=== PATIENT | female | born 1995 | race Caucasian/White ===

== ENCOUNTER 2022-12-23 16:34 | Emergency (ER) | payer MEDICAID ==
[~2022-12-23] VITALS: Ht 167.6 cm; Wt 86.6 kg
[2022-12-23 16:39] VITALS: BP 130/83
[2022-12-23 16:54] LABS: URINE HCG POSITIVE (NEG)
[2022-12-23 17:02] LABS: CLARITY,URINE CLEAR (Clear); COLOR,URINE YELLOW (Yellow); GLUCOSE, URINE NEGATIVE (Neg); KETONES,URINE >=80 mg/dl (Neg); LEUKOCYTE ESTERASE ,URINE NEGATIVE (Neg); NITRITES, URINE NEGATIVE (Neg); OCCULT BLOOD,URINE TRACE-INTACT (Neg); PROTEIN,URINE NEGATIVE (Neg); UROBILINOGEN,URINE 0.2 E.U/dL (0.2-1.0)
[2022-12-23 17:03] LABS: UA COLLECTION TYPE CLN CATCH MIDSTREAM
[2022-12-23 17:08] LABS: WBC,URINE 0-4 /HPF (0-4)
[2022-12-23 17:09] LABS: BACTERIA,URINE FEW /HPF (Neg); RBC,URINE 0-2 /HPF (0-2); SQUAMOUS EPITHELIAL CELL,UR MODERATE /LPF (FEW)
== END 2022-12-23 18:51 | disposition home or self-care (01) ==
LOC: ER 16:35
DX: O46.8X2 Other antepartum hemorrhage, second trimester (principal); O26.892 Other specified pregnancy related conditions, second trimester; R51.9 Headache, unspecified
CPT/HCPCS: 76805; 81001; 81025; 99284